=== PATIENT | female | born 1990 | race Caucasian/White ===

== ENCOUNTER 2018-09-22 17:16 | Emergency (ER) | payer OTHER ==
[2018-09-22] MEDS ORDERED: OXYCODONE/APAP 5/325 TAB PO ONE (18:00)
--- NOTE | 2018-09-22 18:01 | EDPHY ---
H & P Stated Complaint: Left wrist injury Time Seen by Provider: 09/22/18 17:57 HPI/ROS: HPI: This is a 27-year-old female who presents with Chief Complaint: Left wrist injury Location: Left wrist Quality: Injury Duration: 2 hr prior to arrival Signs and Symptoms: No bleeding, no radiation, no numbness, no weakness, no tingling, no incontinence, + decreased range of motion, + swelling, + pain, no fever, no skin color changes Timing: Acute, constant Severity: 03/29 Context: Patient is right-hand dominant, presents with complaints of a left wrist injury while snowboarding approximately 2 hr prior to arrival. She reports that she was coming downhill and picking up speed when she tried to avoid running into a group children and fell backwards landing on her hyperextended left wrist. She reports that she felt immediate, constant, nonradiating, severe pain in her left wrist worse on the radial aspect. Patient reports that there is swelling and decreased range of motion secondary to pain. She denies paresthesias, weakness. She did not hit her head and was wearing a helmet. No loss of consciousness. Patient is here visiting from [place]. Modifying Factors: Splint applied by skip pitman Comment: ROS: A comprehensive 10 system review of systems is otherwise negative aside from elements mentioned in the history of present illness. MEDICAL/SURGICAL/SOCIAL HISTORY: Medical history: Generally healthy. Does not take any regular medications. LMP 1-2 weeks ago. Surgical history: Denies Social history: Employed. Denies drug, alcohol, tobacco use. CONSTITUTIONAL: Polite and cooperative young adult white female, still in snowboard clothing, family at bedside, awake and alert, no obvious distress HEENT: Atraumatic and normocephalic. NECK: supple EXTREMITIES: 2/2 pulses, strength 5/5, left WRIST: Obvious deformity over the radial styloid/aspect with tenderness to palpation. Extension is decreased to 40, flexion to 50, radial deviation to 10 and ulnar deviation to 10. No scaphoid tenderness noted. Moderate tenderness over radial styloid. DIP/PIP/ MCP flexion/extension intact with good light touch sensation. Able to wiggle all 5 fingers without difficulty. no clubbing, no cyanosis or edema. NEUROLOGICAL: no focal neuro deficits. GCS 15. Light touch sensation intact. SKIN: Warm and dry, no erythema. no rash. Good capillary refill. Source: Patient Exam Limitations: No limitations - Personal History LMP (Females 10-55): 8-14 Days Ago Current Tetanus/Diphtheria Vaccine: Yes - Medical/Surgical History Hx Asthma: No Hx Chronic Respiratory Disease: No Hx Diabetes: No Hx Cardiac Disease: No Hx Renal Disease: No Hx Cirrhosis: No Hx Alcoholism: No Other PMH: Denies - Social History Smoking Status: Never smoked Constitutional: Initial Vital Signs Temperature (C) 36.6 C 09/22/18 17:31 Heart Rate 102 H 09/22/18 17:31 Respiratory Rate 18 09/22/18 17:31 Blood Pressure 139/85 H 09/22/18 17:31 O2 Sat (%) 99 09/22/18 17:31 O2 Delivery Mode Room Air Allergies/Adverse Reactions: No Known Allergies Allergy (Unverified 09/22/18 17:33) Home Medications: Medication Instructions Recorded oxyCODONE/APAP 5/325 [Percocet 1 - 2 tab PO Q4H PRN #10 tab 09/22/18 5/325 (*)] Medical Decision Making - Diagnostics Imaging Results: Imaging Impressions Wrist X-Ray 09/22/18 17:35 Impression: Acute Colles' fracture with an additional fracture involving the medial base of distal ulnar metaphysis. Procedures: Procedure: reduction. The angulation of the left distal radius was reduced using counter traction technique without complications. Post reduction the patient's neurovascular exam is normal. The procedure was performed by myself. Procedure: Splint placement. A left sugar-tong Ortho Glass splint and sling were applied by the emergency bottle house quality control technician and myself. After application of the splint I returned and re- examined the patient. The splint was adequately immobilizing the joint and distal to the splint the patient's circulation and sensation was intact. ED Course/Re-evaluation: Vital signs reviewed and show mild tachycardia. Given Percocet and ice pack applied Wrist x-ray my read shows close displaced distal radial fracture and distal ulnar fracture Intra-articular block given and reduced Placed in sugar-tong splint, sling, orthopedic follow-up Given prescription for Percocet X-rays on disc provided to patient. No signs of neurovascular compromise/tenting of skin/compartment syndrome/ extremities and joints examined above and below area of concern and are neurovascularly intact. This patient was seen under the supervision of my secondary supervising physician. Discussed this patient with Dr. Barnes. Differential Diagnosis: Differential diagnosis includes but is not limited to radial fracture, ulnar fracture, scaphoid fracture, sprain, nerve injury, ligament injury. - Data Points Medications Given: Discontinued Medications Oxycodone/Acetaminophen (Percocet 5/325) 1 tab PO EDNOW ONE Stop: 09/22/18 18:01 Last Admin: 09/22/18 18:24 Dose: 1 tab Departure - Departure Disposition: Home, Routine, Self-Care Clinical Impression: Closed fracture of left distal radius Qualifiers: Encounter type: initial encounter Fracture morphology: Colles' Qualified Code(s ): S52.532A - Colles' fracture of left radius, initial encounter for closed fracture Closed fracture of left distal radius and ulna Qualifiers: Encounter type: initial encounter Qualified Code(s): S52.502A - Unspecified fracture of the lower end of left radius, initial encounter for closed fracture ; S52.602A - Unspecified fracture of lower end of left ulna, initial encounter for closed fracture; S52.602A - Unspecified fracture of lower end of left ulna, initial encounter for closed fracture Condition: Good Instructions: Oxycodone/Acetaminophen (By mouth), Wrist Fracture in Adults (ED) , Splint Care (ED) Additional Instructions: Keep the splint dry and in place until seen by Orthopedics. You sling as needed for comfort. After 48 hours, you may remove the dressing; wash the site daily with mild soap and water; then pat dry. Take Tylenol 650 mg every 4 hours and/or Ibuprofen 600 mg every 8 hours with food as needed for pain. Use Percocet every 6 hours as needed for severe/break through pain. Do not use Tylenol and Percocet concomitantly. Apply ice for 30 minutes at a time; 2-3 times per day for the next 1-2 days. Follow up with Orthopedics in 3-5 days at which time they will evaluate and discuss whether surgery is indicated. Return to the ER immediately if you experience new or worsening pain, discoloration, numbness, tingling, or any other symptoms that concern you. Referrals: Stewart Churchill MD [Medical Doctor] - As per Instructions Stand Alone Forms: Work Excuse Prescriptions: oxyCODONE/APAP 5/325 [Percocet 5/325 (*)] 1 - 2 tab PO Q4H PRN #10 tab PRN Reason: Pain, Severe
[2018-09-22 18:39] VITALS: BP 138/89
== END 2018-09-22 18:38 | disposition home or self-care (01) ==
PROC: 0PSJXZZ Reposition Left Radius, External Approach (ICD-10-PCS; principal; 2018-09-22)
DX: S52.532A Colles' fracture of left radius, initial encounter for closed fracture (principal); V00.311A Fall from snowboard, initial encounter; Y92.89 Other specified places as the place of occurrence of the external cause; Y93.23 Activity, snow (alpine) (downhill) skiing, snowboarding, sledding, tobogganing and snow tubing; Y99.9 Unspecified external cause status
CPT/HCPCS: A4565